=== PATIENT | female | born 1995 | race Caucasian/White ===

== ENCOUNTER 2021-12-04 17:07 | Outpatient (RCR) | payer BC, SELFPAY ==
[2021-12-04 17:36] LABS: Basophils Percent Auto 0.1 % (0.2-1.2); Eosinophils Absolute Auto 0.1 K/mm3 (0-0.3); Eosinophils Percent Auto 0.9 % (0-4.4); Hematocrit 33.5 % (37.0-47.0); Hemoglobin 11.1 g/dL (12.0-15.0); Immature Granulocyte Absolute 0.07 K/mm3 (0.00-0.031); Immature Granulocyte Percent A 0.9 % (0-0.5); Lymphocytes Absolute Auto 1.62 K/mm3 (0.9-3.2); Mean Corpuscular HGB Conc 33.1 g/dl (32-36); Mean Corpuscular Volume 99.7 fl (80-100); Mean Platelet Volume 10.2 fl (7.4-10.4); Monocytes Absolute Auto 0.7 K/mm3 (0.1-0.6); Monocytes Percent Auto 8.7 % (2.6-8.5); Neutrophils Absolute Auto 5.3 K/mm3 (1.3-6.7); Neutrophils Percent Auto 68.4 % (45.5-73.1); Platelet Count Result 193 k/mm3 (150-375); Red Blood Count 3.36 M/mm3 (4.2-5.4); Red Cell Distribution Width 11.9 % (11.5-14.5); White Blood Count 7.7 K/mm3 (4.5-10.0)
[2021-12-07] MEDS: RHO(D) IMMUNE GLOBULIN 300 MCG/2 ML SYRINGE IM (08:27)
== END 2022-03-04 23:59 | disposition home or self-care (01) ==
LOC: ANHLAB 17:07
PROVIDERS: PCP Student in an Organized Health Care Education/Training Program; Visit Provider Student in an Organized Health Care Education/Training Program
DX: Z29.13 Encounter for prophylactic Rho(D) immune globulin (principal); O36.0120 Maternal care for anti-D [Rh] antibodies, second trimester, not applicable or unspecified; Z3A.00 Weeks of gestation of pregnancy not specified
CPT/HCPCS: 36415; 85025; 85461; 90384; 96372; J2790

== ENCOUNTER 2021-12-07 07:41 | Outpatient (CLI) | payer BC, SELFPAY ==
[2021-12-07 09:28] LABS: Glucose 1 Hour PP 50gm Dose 107 mg/dL
== END 2021-12-07 07:42 | disposition home or self-care (01) ==
LOC: ANHLAB 07:42
PROVIDERS: PCP Student in an Organized Health Care Education/Training Program; Visit Provider Student in an Organized Health Care Education/Training Program
DX: Z34.02 Encounter for supervision of normal first pregnancy, second trimester (principal); Z3A.00 Weeks of gestation of pregnancy not specified
CPT/HCPCS: 36415; 82947

== ENCOUNTER 2022-01-18 17:36 | Outpatient (CLI) | payer BC, SELFPAY ==
[2022-01-18 17:49] LABS: Basophils Percent Auto 0.2 % (0.2-1.2); Eosinophils Absolute Auto 0.1 K/mm3 (0-0.3); Hematocrit 33.8 % (37.0-47.0); Hemoglobin 11.5 g/dL (12.0-15.0); Immature Granulocyte Absolute 0.09 K/mm3 (0.00-0.031); Immature Granulocyte Percent A 0.8 % (0-0.5); Lymphocytes Absolute Auto 1.98 K/mm3 (0.9-3.2); Lymphocytes Percent Auto 18.4 % (18.3-44.2); Mean Corpuscular Hemoglobin 32.2 pg (26-34); Mean Corpuscular Volume 94.7 fl (80-100); Mean Platelet Volume 10.8 fl (7.4-10.4); Monocytes Absolute Auto 0.8 K/mm3 (0.1-0.6); Monocytes Percent Auto 7.2 % (2.6-8.5); Neutrophils Absolute Auto 7.8 K/mm3 (1.3-6.7); Neutrophils Percent Auto 72.4 % (45.5-73.1); Platelet Count Result 190 k/mm3 (150-375); Red Blood Count 3.57 M/mm3 (4.2-5.4); Red Cell Distribution Width 11.9 % (11.5-14.5); White Blood Count 10.8 K/mm3 (4.5-10.0)
[2022-01-18 18:46] LABS: HIV 1/2 Ab P24 Ag Result Negative (Negative)
[2022-01-19 17:16] LABS: Rapid Plasma Reagin Non-Reactive (NonReactive)
== END 2022-01-18 17:37 | disposition home or self-care (01) ==
LOC: ANHLAB 17:38
PROVIDERS: PCP Student in an Organized Health Care Education/Training Program; Visit Provider Student in an Organized Health Care Education/Training Program
DX: Z34.03 Encounter for supervision of normal first pregnancy, third trimester (principal); Z3A.00 Weeks of gestation of pregnancy not specified
CPT/HCPCS: 36415; 85025; 86592; 86703; G0432

== ENCOUNTER 2022-02-19 16:21 | Outpatient (CLI) | payer BC, SELFPAY ==
[2022-02-19] VITALS (10 sets, daily range): BP systolic 119–137; BP diastolic 75–89; PULSE 64–82
[2022-02-19 17:12] LABS: Basophils Percent Auto 0.2 % (0.2-1.2); Eosinophils Absolute Auto 0.1 K/mm3 (0-0.3); Eosinophils Percent Auto 0.7 % (0-4.4); Hematocrit 33.9 % (37.0-47.0); Hemoglobin 11.3 g/dL (12.0-15.0); Immature Granulocyte Absolute 0.03 K/mm3 (0.00-0.031); Immature Granulocyte Percent A 0.4 % (0-0.5); Lymphocytes Absolute Auto 1.96 K/mm3 (0.9-3.2); Lymphocytes Percent Auto 23.8 % (18.3-44.2); Mean Corpuscular HGB Conc 33.3 g/dl (32-36); Mean Corpuscular Hemoglobin 30.8 pg (26-34); Mean Corpuscular Volume 92.4 fl (80-100); Mean Platelet Volume 12.2 fl (7.4-10.4); Monocytes Absolute Auto 0.6 K/mm3 (0.1-0.6); Monocytes Percent Auto 7.5 % (2.6-8.5); Neutrophils Absolute Auto 5.6 K/mm3 (1.3-6.7); Neutrophils Percent Auto 67.4 % (45.5-73.1); Platelet Count Result 175 k/mm3 (150-375); Red Blood Count 3.67 M/mm3 (4.2-5.4); Red Cell Distribution Width 12.5 % (11.5-14.5); White Blood Count 8.3 K/mm3 (4.5-10.0)
[2022-02-19 17:19] LABS: Appearance Urine Slightly Cloudy (Clear); Bilirubin Urine Negative (Negative); Color Urine Yellow (Yellow); Glucose Urine UA Negative (Negative); Ketones Urine Negative (Negative); Leukocyte Esterase Ur Negative LEU/UL (NEGATIVE); Nitrate Urine Negative (Negative); Protein Urine Negative (Negative); Urobilinogen Urine 0.2 mg/dL (<2.0); pH Urine 6.5 (5.0-9.0)
[2022-02-19 17:21] LABS: Add Urine Microscopic? YES; Bacteria Urine 1+ /hpf; Blood Urine Trace-Intact (Negative); Mucus Urine Rare /lpf; RBC Urine 0-2 /hpf (0-2); Squamous Epithelial Cell Urine Occasional /hpf (Few); WBC Urine 0-3 /hpf (0-3)
[2022-02-19 17:28] LABS: Alanine Aminotransferase 15 U/L (6-35); Albumin Level 3.5 g/dL (3.5-5.1); Alkaline Phosphatase 156 U/L (38-126); Anion Gap 6 mmol/L (8-16); Aspartate Amino Transferase 23 U/L (14-36); Bilirubin,Total 0.2 mg/dL (0.2-1.3); Blood Urea Nitrogen 8 mg/dL (7-17); Calcium 8.7 mg/dL (8.4-10.2); Carbon Dioxide 19 mmol/L (22-30); Chloride 108 mmol/L (98-107); Estimated Glomerular Filt Rate > 60; Glucose 84 mg/dL (65-110); Potassium 3.9 mmol/L (3.4-5.0); Sodium 133 mmol/L (137-145)
[2022-02-19 20:06] LABS: Creatinine Urine 29.5 mg/dL; Total Protein Urine Random 12 mg/dL; Ur Ttl Prot Creatinine Ratio 0.41 mg/mg (0-0.20)
== END 2022-02-19 20:30 | disposition home or self-care (01) ==
LOC: ANHOBOP 16:26 → ANHOBPP 16:29
PROVIDERS: Visit Provider Student in an Organized Health Care Education/Training Program
DX: O13.9 Gestational [pregnancy-induced] hypertension without significant proteinuria, unspecified trimester (principal); Z3A.00 Weeks of gestation of pregnancy not specified
CPT/HCPCS: 36415; 59025; 80053; 81001; 82570; 84156; 84550; 85025; 87086; 99199

== ENCOUNTER 2022-02-25 16:56 | Inpatient (IN) | payer BC, SELFPAY ==
--- NOTE | 2022-02-25 17:33 | P.PNAN_ITS ---
Anes - Eval Pre Procedure Procedure: labor epidural Date/Time: 02/25/22 17:33 Surgeon: rell Preop Diagnosis: pain during labor Pre Op Diagnosis: IOL Patient Data Age: 26 Gender: F Height: Weight: Allergies Allergy/AdvReac Type Severity Reaction Status Date / Time Penicillins Allergy Intermediate Hives Verified 02/25/22 10:36 Home Medications Medication Instructions Recorded Confirmed Type prenat.vits,danay,umb-ovnj-miior 1 tablet PO DAILY 07/29/21 History Patient hx anesthesia problems: none Family hx anesthesia problems: none Results Review: All pre-operative results and documents have been reviewed as part of the pre- operative evaluation. [facility] Past Medical History Medical History (Updated 02/25/22 @ 17:34 by Adry Zambrano CRNA) Migraines, neuralgic Seasonal allergies Surgical History Surgical History [place] teeth removed Family History Family History Grandparent Heart disease Uterine cancer Mother Endometriosis Grandparent Endometriosis Social History Social History Smoking status: Never smoker Alcohol intake: former Alcohol use details: Not since Substance use: never Spiritual care concerns: No Exam Day of Procedure 02/25/22 17:33
[2022-02-25] MEDS: DINOPROSTONE 10 MG VAG INSERT VAGINAL (17:40)
[2022-02-25 17:42] VITALS: BP 129/88; PULSE 74
[2022-02-25 17:47] LABS: Basophils Percent Auto 0.2 % (0.2-1.2); Eosinophils Percent Auto 0.3 % (0-4.4); Hemoglobin 11.8 g/dL (12.0-15.0); Immature Granulocyte Absolute 0.03 K/mm3 (0.00-0.031); Immature Granulocyte Percent A 0.3 % (0-0.5); Lymphocytes Absolute Auto 2.27 K/mm3 (0.9-3.2); Lymphocytes Percent Auto 25.1 % (18.3-44.2); Mean Corpuscular HGB Conc 33.7 g/dl (32-36); Mean Corpuscular Volume 91.9 fl (80-100); Mean Platelet Volume 12.9 fl (7.4-10.4); Monocytes Absolute Auto 0.6 K/mm3 (0.1-0.6); Monocytes Percent Auto 6.3 % (2.6-8.5); Neutrophils Absolute Auto 6.1 K/mm3 (1.3-6.7); Neutrophils Percent Auto 67.8 % (45.5-73.1); Platelet Count Result 182 k/mm3 (150-375); Red Blood Count 3.81 M/mm3 (4.2-5.4); Red Cell Distribution Width 12.9 % (11.5-14.5)
[2022-02-25 17:56] VITALS: BMI 25.9
[2022-02-25 18:00] VITALS: BP 128/85; PULSE 73; TEMP 37.1
[2022-02-25 18:31] VITALS: BP 119/72; PULSE 78
[2022-02-25 19:01] VITALS: BP 116/80; PULSE 75
[2022-02-25 19:30] VITALS: BP 126/87; PULSE 70
[2022-02-25 20:01] VITALS: BP 127/84; PULSE 75
[2022-02-25] MEDS: LACTATED RINGERS 1,000 ML 125 ML IV CONT (22:50)
[2022-02-25] MEDS: fentaNYL CITRATE INJ (*CRX) 100 MCG/2 ML VIAL 50 MCG IV PUSH (23:15)
[2022-02-26] VITALS (188 sets, daily range): BP systolic 112–157; BP diastolic 58–99; PULSE 63–146; RESP 14–20; TEMP 36.4–38.4; O2SAT 93–100
[2022-02-26] MEDS: fentaNYL CITRATE INJ (*CRX) 100 MCG/2 ML VIAL 50 MCG IV PUSH (01:08)
[2022-02-26] MEDS: LACTATED RINGERS 1,000 ML 125 ML IV CONT ×4 (01:09→11:59)
--- NOTE | 2022-02-26 10:11 | PM.IMHP ---
H&P: HPI History of Present Illness Date/Time: 02/26/22 10:11 Chief Complaint: Elective induction of labor Narrative: Patient presents for elective medical induction of labor at 39 weeks. LMP 05/28/2021 EDC 03/04/2022 consistant with week ultrasound. Uncomplicated course. Labs reviewed. GBS neg. Review of Systems Review of Systems: All systems reviewed & are unremarkable except as noted in HPI and below Constitutional: Constitutional: Reports no additional constitutional complaints and Denies headache(s) Eyes: Eyes: Denies spots in vision ENT: Reports system reviewed and no additional complaints, except as documented and Denies headache(s) Cardiovascular: Cardiovascular: Denies chest pain and Denies dyspnea Respiratory: Respiratory: Denies dyspnea Gastrointestinal: Gastrointestinal: Reports no additional gastrointestinal complaints Genitourinary: Genitourinary: Reports amenorrhea Musculoskeletal: Musculoskeletal: Reports no additional musculoskeletal complaints Integumentary/Breasts: Skin/Breast: Denies breast mass and Denies rash Neurologic: Denies headache(s) Psychiatric: Psychiatric: Reports no additional psychiatric complaints [facility] Past Medical History Medical History (Updated 02/27/22 @ 11:24 by Giacomo Rogers MD) Migraines, neuralgic Seasonal allergies Surgical History Surgical History [place] teeth removed Family History Family History Grandparent Heart disease Uterine cancer Mother Endometriosis Grandparent Endometriosis Social History Social History Smoking status: Never smoker Alcohol intake: former Alcohol use details: Not since Substance use: never Spiritual care concerns: No Meds Home Medications and Allergies Home Medications Medication Instructions Recorded Confirmed Type prenat.vits,danay,pfv-iigy-blqsi 1 tablet PO DAILY 07/29/21 02/25/22 History Allergies Allergy/AdvReac Type Severity Reaction Status Date / Time Penicillins Allergy Intermediate Hives Verified 02/25/22 10:36 Vital Signs Vital Signs - 24 hr 02/25/22 17:42 02/25/22 18:00 02/25/22 18:31 Temperature 98.8 F Pulse Rate 74 73 78 Respiratory Rate Blood Pressure 129/88 128/85 119/72 Pulse Oximetry Oxygen Delivery 02/25/22 19:01 02/25/22 19:30 02/25/22 20:01 Temperature Pulse Rate 75 70 75 Respiratory Rate Blood Pressure 116/80 126/87 127/84 Pulse Oximetry Oxygen Delivery 02/26/22 00:08 02/26/22 03:57 02/26/22 03:58 Temperature 98.9 F Pulse Rate 74 97 Respiratory Rate Blood Pressure 127/77 139/96 H Pulse Oximetry 100 Oxygen Delivery 02/26/22 03:59 02/26/22 04:01 02/26/22 04:02 Temperature Pulse Rate 88 97 Respiratory Rate Blood Pressure 150/89 H 130/97 H Pulse Oximetry 100 Oxygen Delivery 02/26/22 04:03 02/26/22 04:05 02/26/22 04:07 Temperature Pulse Rate 96 84 84 Respiratory Rate Blood Pressure 129/76 135/80 136/69 Pulse Oximetry 100 Oxygen Delivery 02/26/22 04:09 02/26/22 04:11 02/26/22 04:12 Temperature Pulse Rate 93 88 Respiratory Rate Blood Pressure 137/90 125/62 Pulse Oximetry 100 Oxygen Delivery 02/26/22 04:14 02/26/22 04:15 02/26/22 04:17 Temperature Pulse Rate 94 90 90 Respiratory Rate Blood Pressure 147/94 H 140/70 137/67 Pulse Oximetry 100 Oxygen Delivery 02/26/22 04:19 02/26/22 04:21 02/26/22 04:22 Temperature Pulse Rate 85 83 Respiratory Rate Blood Pressure 137/61 143/67 H Pulse Oximetry 100 Oxygen Delivery 02/26/22 04:24 02/26/22 04:26 02/26/22 04:27 Temperature Pulse Rate 84 81 Respiratory Rate Blood Pressure 140/72 137/58 L Pulse Oximetry 100 Oxygen Delivery 02/26/22 04:31
[2022-02-26] MEDS: OXYTOCIN 30 UNITS/NS 500 ML 30 UNITS/500 ML BAG IV CONT (10:15)
--- NOTE | 2022-02-26 13:30 | PM.OBPRVD ---
OB - Delivery Note Procedure Delivery date: 02/26/22 Procedure: spontaneous vaginal delivery Delivery augmentation: Rupture of Membranes and Pitocin Delivery monitor: External FHT Route of delivery: Laceration Description: Vaginal Delivery repair: vicryl (3.0 vicryl) Specimen: No Quantitative Blood Loss (ml): 200 Anesthesia type: Epidural Disposition: Floor Complications: None Narrative: Patient admitted the evening of 02/25 for MIL with cervidil. Cervidil was initiated. She started having tachysystole. Reassuring tracing. Cervidil was removed due to tachysystole. She continued to progress into labor spontaneously. Epidural was placed on request. She was 8 cm for 4 hours and pitocin augmentation was initiated. She progressed to complete. She had a spontaneous vaginal delivery. [place] Baby Date of : 02/26/22 Time of : 13:11 Weeks of gestation at delivery: 39 gender: Male Weight (pounds): 7 Weight (ounces): 0 presentation: vertex position: Left Occiput Anterior Placenta delivery description: Spontaneous Cord Vessel Description: Nuchal Cord, Tight and Reduced (surgically) score one minute: 7 score five minutes: 8 AMG Delivery Billing Delivery Delivery: Delivery Charge
[2022-02-26] MEDS: OXYTOCIN 30 UNITS/NS 500 ML 30 UNITS/500 ML BAG 125 UNITS IV CONT (13:45)
[2022-02-26] MEDS: IBUPROFEN 600 MG TABLET PO (15:23)
--- NOTE | 2022-02-26 16:00 | PC.NURSE ---
Patient transferred to post room #280 via wheelchair. Support person present. Oriented to unit, room, information board, rooming in, admission packet and security measures. Patient verbalizes understanding.
[2022-02-26 16:31] LABS: Rapid Plasma Reagin Non-Reactive (NonReactive)
[2022-02-27 01:45] VITALS: BP 129/77; PULSE 69; RESP 14; TEMP 36.6; O2SAT 98
[2022-02-27 05:20] VITALS: BP 118/73; PULSE 75; RESP 16; TEMP 36.4; O2SAT 96
[2022-02-27 06:01] LABS: Hematocrit 28.5 % (37.0-47.0); Hemoglobin 9.3 g/dL (12.0-15.0)
[2022-02-27 08:00] VITALS: BP 139/83; PULSE 88; RESP 16; TEMP 37; O2SAT 96
[2022-02-27] MEDS: DOCUSATE SODIUM 100 MG CAPSULE PO ×2 (09:40→17:27)
[2022-02-27] MEDS: IBUPROFEN 600 MG TABLET PO (09:40)
[2022-02-27] MEDS: POLYSACCHARIDE IRON COMPLEX 150 MG CAPSULE PO ×2 (09:40→17:27)
--- NOTE | 2022-02-27 11:28 | PM.OBPNVD ---
OB - PN: Subj Subjective Date/time seen: 02/27/22 11:28 Patient comments: pain well controlled, tolerating diet and other (Decreasing lochia.) baby status: doing well and nursing well OB - PN: Obj Data Labs CBC & Chem 7: 02/27/22 05:32 Labs: Laboratory Results - last 24 hr 02/25/22 02/27/22 17:35 05:32 Hgb 9.3 L Hct 28.5 L RPR Non-reactive OB - PN A/P Plan day: 1 Plan: routine care Comments: Patient doing well. Baby doing well. Labial swelling today that was not present yesterday. She requested discharge today. I recommended she stay so that we can observe if the labial swelling is stable. Continuous ice pack to area. Time Spent With Patient Time: Total time spent is greater than 50% in coordination of care (as documented) at patient's floor/unit and/or counseling patient: Exam Const: General: comfortable and no acute distress Eyes: General: appearance normal, both eyes and all related structures Neck: Neck: normal visual inspection Resp: Effort & Inspection: normal respiratory effort Psych: Affect: normal affect Other: Abd: fundus firm below umbilicus, nontender Perineum: mild swelling diffusely in labia, mild bruising at labia, Ext: nontender
[2022-02-27 12:00] VITALS: BP 130/86; PULSE 72; RESP 16; TEMP 36.7; O2SAT 98
[2022-02-27 19:35] VITALS: BP 118/78; PULSE 76; RESP 16; TEMP 36.6; O2SAT 100
[2022-02-28] MEDS: DOCUSATE SODIUM 100 MG CAPSULE PO (07:31)
[2022-02-28] MEDS: POLYSACCHARIDE IRON COMPLEX 150 MG CAPSULE PO (07:31)
[2022-02-28 07:45] VITALS: BP 115/81; PULSE 82; RESP 16; TEMP 36.8; O2SAT 100
--- NOTE | 2022-02-28 09:55 | P.PNOB_ITS ---
OB - PN: Subj Subjective Date/time seen: 02/28/22 09:55 Interval history: no pain has not taken Ibuprofen since yesterday Patient comments: pain well controlled, tolerating diet and other (Decreasing lochia.) [place] baby status: doing well and nursing well OB - PN: Obj Data Labs CBC & Chem 7: 02/27/22 05:32 OB - PN A/P Plan day: 1 Plan: routine care Comments: Patient doing well. Discharge home. Discharge precautions discussed. Time Spent With Patient Time: Total time spent is greater than 50% in coordination of care (as documented) at patient's floor/unit and/or counseling patient: Exam Psych: Affect: normal affect Other: Abd: fundus firm below umbilicus, nontender Perineum: healing, perineum less swelling Ext: nontender
--- NOTE | 2022-02-28 10:35 | PC.NURSE ---
Patient viewed the discharge video Mother & Baby Care, The First Two Weeks . Patient was given the opportunity and encouraged to ask questions. Patient verbalized understanding of information shared and has been given the mother/baby guide for home reference.
[2022-03-02 08:25] VITALS: BP 133/89; PULSE 78; RESP 18; TEMP 36.6
--- NOTE | 2022-03-30 08:59 | PM.OBDSVD ---
DS: Admitting Diagnosis Discharge Date 02/28/22 Admitting Diagnosis Medical induction of labor DS: Discharge Diagnosis Discharge Diagnosis (1) Delivery normal: Code(s): O80 - Encounter for full-term uncomplicated delivery Status: Acute OB - DS: Summary Hospital Course Hospital Course: Patient admitted for medical induction of labor. She progressed into labor rapidly with cervidil which was removed early due to onset of labor. She did receive pitocin augmentation. She had a vaginal delivery uncomplicated. she did well. On day one she did have overall labial swelling that was not present initially after labor. She had ice applied to area. On day two, the swelling was less, her pain was adequately controlled. She was ambulating without problems. Baby was doing well. She was discharged to home on day 2. Discharge precautions discussed. OB Procedures : Ultrasound OB Procedures Intrapartum: Spontaneous Vag Delivery OB Procedures: : None Peripartum Data Infant Delivery Method: Natural Vaginal Laceration Description: Vaginal - 1st Degree complications: none Status at Discharge Functional status at discharge: independent ambulation Time Spent with Patient Time attestation: Total time spent providing and/or coordinating discharge services: Exam Const: General: cooperative Orientation/consciousness: oriented to person, oriented to place and oriented to time HENMT: General nose exam: Normal external nose present Eyes: General: appearance normal, both eyes and all related structures Resp: Effort & Inspection: normal respiratory effort GI: Inspection: normal to inspection Skin: General skin exam: normal color Neuro: General: oriented to person, oriented to place and oriented to time Extrem: General: normal to inspection and no calf tenderness Psych: Appearance: grossly normal Mental Status: mental status grossly normal Discharge Plan Discharge Attending physician on discharge: Giacomo Rogers Consulting providers: Adry Zambrano Discharging Clinician: Giacomo Rogers Anticipated Discharge Date/Time: 02/28/22 09:53 Patient Disposition: Home, Self-Care Activity: may shower and pelvic rest Diet: regular Discharge Instructions: Pelvic rest for 4-6 weeks. May take over the counter Ibuprofen or Tylenol for pain. Call if saturating more than a pad an hour, leg redness, pain and swelling, temperature>100.4. No strenuous activity. Education: Mom and Baby Guide Given to: Mother Follow-Up: Call your delivering provider's office for an appointment to be seen in: Call for appointment Mom and baby should come to the [facility] for the follow-up appointment. Appointment Date/Time: March 02, 2022 at 8:00 am What to expect at your follow-up visit: Physical Assessment Call [phone] if you are unable to keep your appointment time. BREAST CARE: * Wear a snug supportive bra. * For engorgement discomfort: Breast Feeding: * Apply warm moist washcloths * Express milk as needed to relieve engorgement * Wear loose clothing * For sore nipples: * Identify correct latch-on * Apply warm moist washcloths before and after nursing * Air dry nipples after nursing * May apply Lansinoh cream to nipples ABDOMINAL INCISION: (if applicable) * Allow incision to air dry * Do NOT use lotions for powders on your incision * When showering, allow soap and water to run over the incision, but do not wash incision EPISIOTOMY/PERINEAL CARE: * Until bleeding stops, use your jessa bottle after urinating * Change your pad frequently throughout the day * You may take sitz baths several times a day (fill your bathtub with warm water and soak for 20 minutes.) Do NOT bathe in the water * No tub baths until seen by your physician - You may s
== END 2022-02-28 11:30 | disposition home or self-care (01) | DRG 807 ==
LOC: ANHLDR 17:13 → ANHOB2 02-28 09:55 → ANHLDR 03-03 07:50
PROVIDERS: Admitting Provider Student in an Organized Health Care Education/Training Program; Visit Provider Obstetrics & Gynecology
DX: O69.1XX0 Labor and delivery complicated by cord around neck, with compression, not applicable or unspecified (principal); Z37.0 Single live birth; O70.0 First degree perineal laceration during delivery; Z3A.39 39 weeks gestation of pregnancy; Z88.0 Allergy status to penicillin
CPT/HCPCS: 36415; 85014; 85018; 85025; 86592; 86850; 86900; 86901; A9270; J2590; J2795; J3010; J7120

== ENCOUNTER 2024-03-20 09:58 | Emergency (ER) | payer BC, SELFPAY ==
--- NOTE | 2024-03-20 10:00 | ED.NAVMDI ---
HPI - Nausea/Vomiting/Diarrhea General Chief complaint: Nausea/Vomiting/Diarrhea Stated complaint: ABD PAIN/DIARRHEA Source: patient and RN notes reviewed Mode of arrival: ambulatory Limitations: no limitations History of Present Illness HPI Narrative: Patient is a 29-year-old female who presents with epigastric abdominal pain and diarrhea. Patient states that she has been experiencing generalized abdominal pain since Tuesday. She has had diarrhea since Tuesday. She denies blood in the stool. At this time, she is experiencing epigastric abdominal pain that radiates into her back. She states that the pain is constant moderately severe. She denies known fevers. Denies associated nausea or vomiting. Unsure of any known sick contacts. Denies any past medical history. Related Data Allergies Allergy/AdvReac Type Severity Reaction Status Date / Time Penicillins Allergy Intermediate Hives Verified 03/20/24 10:04 Review of Systems Review of Systems: CONSTITUTIONAL: Denies fever, chills, or sweats. EYES: Denies visual changes, redness, or discharge. ENT: Denies otalgia and sore throat CARDIOVASCULAR: Denies chest pain, palpitations, or edema. RESPIRATORY: Denies cough or dyspnea. GASTROINTESTINAL: Denies nausea and vomiting but reports abdominal pain and diarrhea. GENITOURINARY: Denies dysuria or hematuria. SKIN: Denies rash or itching. MUSCULOSKELETAL: Denies back pain, joint pain, or myalgia. NEUROLOGIC: Denies headache, numbness, or weakness. Pertinent positives per HPI. Endocrine: Endocrine: Reports no additional endocrine complaints PMFSH Past Medical History Medical History Migraines, neuralgic Seasonal allergies Vaginal delivery Surgical History Surgical History [place] teeth removed Family History Family History Grandparent Heart disease Uterine cancer Mother Endometriosis Grandparent Endometriosis Social History Social History Smoking status: Never smoker Alcohol intake: former Alcohol use details: Not since Substance use: never Spiritual care concerns: No Comments At the time of my signature, I reviewed and agree with the nursing past medical, surgical, social, and family history. There is no relevant family history pertinent to the patient complaint. Exam Narrative: GENERAL: This is a well-nourished, well-developed patient, in no apparent distress. HEAD: normocephalic, atraumatic. EYES: Sclera clear/white. Vision is grossly intact. EARS: External ears normal. Hearing grossly intact. NOSE: External nose normal with no obvious nasal discharge, nares without redness, no rhinorrhea. THROAT: Mucous membranes moist, posterior pharynx clear. NECK: Neck supple, non-tender without lymphadenopathy, masses or thyromegaly. CARDIOVASCULAR: Regular rate and rhythm without murmurs, gallops, or rubs. RESPIRATORY: Clear to auscultation. Breath sounds equal bilaterally. No wheezes, rales, or rhonchi. GASTROINTESTINAL: Epigastric tenderness upon palpation. Bowel sounds are active. No hepato-splenomegaly, or palpable masses. SKIN: warm, intact with no suspicious lesions or rash, good texture and turgor. NEURO: awake, alert, and oriented to person, place and time. There were no obvious focal neurologic abnormalities. EXTREMITIES: No clubbing, cyanosis, or edema. No joint tenderness, effusion, or edema noted. BACK: Nontender without deformity or crepitance. No flank tenderness. Course Course Level of Care: Express Care Visit Vital Signs Vital signs: Vital Signs Temperature 98.1 F 03/20/24 10:06 Pulse Rate 98 03/20/24 10:06 Respiratory Rate 16 03/20/24 10:06 Blood Pressure 121/81 03/20/24 10:06 Pulse Oximetry 100 03/20/24 10:06 Temp
[2024-03-20 10:06] VITALS: BP 121/81; PULSE 98; RESP 16; TEMP 36.7; O2SAT 100
== END 2024-03-20 10:10 | disposition short-term general hospital (02) ==
PROVIDERS: Emergency Provider Nurse Practitioner
DX: R10.13 Epigastric pain (principal)
CPT/HCPCS: 99212; G0463

== ENCOUNTER 2024-03-20 10:32 | Emergency (ER) | payer BC, SELFPAY ==
--- NOTE | ~2024-03-20 | CT_ITS ---
EXAMINATION: CT abdomen pelvis w con DATE: 03/20/2024 12:38 INDICATION: Abdominal pain. TECHNIQUE: Computed tomography (CT) of the abdomen and pelvis was performed with 100 mL Omnipaque 350 intravenous contrast. Automated exposure control and iterative reconstruction technique were employe d. The dose-length product was 181.33 mGy-cm. COMPARISON: None. FINDINGS: The visualized portions of the lung bases demonstrate minimal atelectasis. No pleural effus ion. The heart size is normal. No pericardial effusion. The liver demonstrates steatosis in the gallb ladder fossa. The gallbladder, spleen, pancreas, adrenal glands, and kidneys are normal. There is wal l thickening throughout the colon, consistent with colitis. The appendix is normal. There are no path ologically enlarged lymph nodes. There is physiologic fluid in the pelvis. The bones are unremarkable . IMPRESSION: 1. Pancolitis. Reviewed, dictated and finalized at location A. IMPRESSION: 1. Pancolitis.
[2024-03-20 10:33] VITALS: BP 119/84; PULSE 94; RESP 16; TEMP 36.4; O2SAT 99
[2024-03-20 10:59] LABS: Basophils Percent Auto 0.2 % (0.2-1.2); Eosinophils Absolute Auto 0.2 K/mm3 (0-0.3); Hematocrit 43.6 % (37.0-47.0); Hemoglobin 15.3 g/dL (12.0-15.0); Immature Granulocyte Absolute 0.01 K/mm3 (0.00-0.031); Immature Granulocyte Percent A 0.2 % (0-0.5); Immature Platelet Fraction Pct 2.8 % (0.9-11.2); Lymphocytes Absolute Auto 0.92 K/mm3 (0.9-3.2); Lymphocytes Percent Auto 19.2 % (18.3-44.2); Mean Corpuscular HGB Conc 35.1 g/dl (32-36); Mean Corpuscular Hemoglobin 31.7 pg (26-34); Mean Corpuscular Volume 90.3 fl (80-100); Mean Platelet Volume 9.9 fl (7.4-10.4); Monocytes Absolute Auto 0.5 K/mm3 (0.1-0.6); Neutrophils Absolute Auto 3.2 K/mm3 (1.3-6.7); Neutrophils Percent Auto 66.4 % (45.5-73.1); Platelet Count Result 140 k/mm3 (150-375); Red Blood Count 4.83 M/mm3 (4.2-5.4); Red Cell Distribution Width 11.6 % (11.5-14.5); White Blood Count 4.8 K/mm3 (4.5-10.0)
[2024-03-20 11:08] LABS: Alanine Aminotransferase 17 U/L (6-35); Albumin Level 4.4 g/dL (3.5-5.1); Alkaline Phosphatase 47 U/L (38-126); Anion Gap 11 mmol/L (4-12); Aspartate Amino Transferase 29 U/L (14-36); Bilirubin,Total 0.9 mg/dL (0.2-1.3); Blood Urea Nitrogen 9 mg/dL (7-17); Calcium 8.7 mg/dL (8.4-10.2); Carbon Dioxide 25 mmol/L (22-30); Chloride 97 mmol/L (98-107); Estimated CRCL calculation 73 ml/min; Estimated Glomerular Filt Rate > 60; Glucose 99 mg/dL (65-110); Lipase 40 U/L (23-300); Potassium 4.4 mmol/L (3.4-5.0); Sodium 133 mmol/L (137-145)
[2024-03-20 11:36] LABS: BEDSIDEPREGUCG Negative
[2024-03-20] MEDS: BELLADONNA ALK/PHENOB ELIX 10 ML, MAG HYDROX/ALUMINUM HYD/SIMETH 30 ML, LIDOCAINE HCL 2... PO (11:39)
[2024-03-20 11:47] LABS: Add Urine Microscopic? YES; Appearance Urine Cloudy (Clear); Bacteria Urine 1+ /hpf; Bilirubin Urine Negative (Negative); Blood Urine 2+ (Negative); Color Urine Yellow (Yellow); Glucose Urine UA Negative (Negative); Ketones Urine 1+ mg/dL (Negative); Leukocyte Esterase Ur 1+ LEU/UL (Negative); Nitrate Urine Negative (Negative); Protein Urine Trace mg/dL (Negative); Specific Grav Ur 1.013 (1.001-1.035); Squamous Epithelial Cell Urine Many /hpf (Few); Urobilinogen Urine 0.2 mg/dL (<2.0); WBC Urine 21-50 /hpf (0-3)
[2024-03-20] MEDS: SODIUM CHLORIDE 0.9% IV 1,000 ML 999 ML IV CONT (12:19)
--- NOTE | 2024-03-20 12:48 | ED.ABDPAIN ---
HPI - Abdominal Pain General Chief Complaint: Abdominal Pain Stated Complaint: ABD PAIN,DIARRHEA X5D Time Seen by Provider: 03/20/24 11:23 History of Present Illness HPI narrative: 29-year-old female with no significant medical problems presents to the emergency room for evaluation of this epigastric pain that radiates through to her back began this morning. Patient endorses 3 days of non bloody diarrhea. Patient states that she took Imodium x1 in began developing abdominal spasms. Denies nausea or vomiting. Denies fevers. States no abdominal pain relief after bowel movements. Denies dysuria. Related Data Allergies Allergy/AdvReac Type Severity Reaction Status Date / Time Penicillins Allergy Intermediate Hives Verified 03/20/24 10:04 Review of Systems Review of Systems: ROS unremarkable except for noted in HPI PMFSH Past Medical History Medical History Migraines, neuralgic Seasonal allergies Vaginal delivery Surgical History Surgical History [place] teeth removed Family History Family History Grandparent Heart disease Uterine cancer Mother Endometriosis Grandparent Endometriosis Social History Social History Smoking status: Never smoker Alcohol intake: former Alcohol use details: Not since Substance use: never Spiritual care concerns: No Exam Narrative: GENERAL: Well-appearing, well-nourished, no physical limitations, and in no acute distress. HEAD: Normocephalic, atraumatic. EYES: Conjunctivae normal, PERRLA and EOMI. CHEST: Clear to auscultation. No respiratory distress. No wheezes rales or rhonchi. HEART: Regular rate and rhythm. No murmur heard. Normal peripheral pulses. ABDOMEN: Soft, periumbilical tenderness, nondistended, normal active bowel sounds. BACK: No CVA tenderness EXTREMITIES: Normal range of motion. No edema. No clubbing or cyanosis SKIN: Warm, dry, no rash. No noted wounds NEURO: No focal deficits. Alert and oriented x3. MAEW. CN's II-XI intact bilaterally, normal gait PSYCH: Cooperative. Normal mood and affect. Course Vital Signs Vital signs: Vital Signs Temperature 36.4 C 03/20/24 10:33 Pulse Rate 94 03/20/24 10:33 Respiratory Rate 16 03/20/24 10:33 Blood Pressure 119/84 03/20/24 10:33 Pulse Oximetry 99 03/20/24 10:33 Oxygen Delivery Room Air 03/20/24 10:33 Temperature 36.4 C 03/20/24 10:33 Pulse Rate 94 03/20/24 10:33 Respiratory Rate 16 03/20/24 10:33 Blood Pressure 119/84 03/20/24 10:33 Pulse Oximetry 99 03/20/24 10:33 Oxygen Delivery Room Air 03/20/24 10:33 MDM - Abdominal Pain Lab Data 03/20/24 10:52 03/20/24 10:52 Labs: Lab Results 03/20/24 03/20/24 03/20/24 Range/Units 10:52 11:30 11:32 WBC 4.8 (4.5-10.0) K/mm3 RBC 4.83 (4.2-5.4) M/mm3 Hgb 15.3 H D (12.0-15.0) g/dL Hct 43.6 (37.0-47.0) % MCV 90.3 (80-100) fl MCH 31.7 (26-34) pg MCHC 35.1 (32-36) g/dl RDW 11.6 (11.5-14.5) % Plt Count 140 L (150-375) k/mm3 MPV 9.9 (7.4-10.4) fl Immature Gran % (Auto) 0.2 (0-0.5) % Neut % (Auto) 66.4 (45.5-73.1) % Lymph % (Auto) 19.2 (18.3-44.2) % Wilson % (Auto) 10.0 H (2.6-8.5) % Eos % (Auto) 4.0 (0-4.4) % Baso % (Auto) 0.2 (0.2-1.2) % Lymph # (Auto) 0.92 (0.9-3.2) K/mm3 Wilson # (Auto) 0.5 (0.1-0.6) K/mm3 Eos # (Auto) 0.2 (0-0.3) K/mm3 Baso # (Auto) 0.0 (0.0-0.1) K/mm3 Abs Immat Gran (auto) 0.01 (0.00-0.031) K/mm3 Absolute Neuts (auto) 3.2 (1.3-6.7) K/mm3 Absolute Nucleated RBC 0.000 (0.0-0.012) K/mm3 Nucleated RBC % 0.0 (0.0-0.2) % % Immature Plt Fraction 2.8 (0.9-11.2) % Sodium 133 L (137-145) mmol/L Po
[2024-03-20 14:30] VITALS: BP 132/80; PULSE 90; RESP 16; O2SAT 98
== END 2024-03-20 14:30 | disposition home or self-care (01) ==
PROVIDERS: Emergency Provider Nurse Practitioner Family
DX: K52.9 Noninfective gastroenteritis and colitis, unspecified (principal)
CPT/HCPCS: 36415; 74177; 80053; 81001; 81025; 83690; 85025; 85055; 87086; 96360; 99284; A9270; J0500; J7030; Q9967

== ENCOUNTER 2025-05-09 13:14 | Outpatient (CLI) | payer BC, SELFPAY ==
--- NOTE | ~2025-05-09 | US_ITS ---
EXAMINATION: US thyroid DATE: 05/09/2025 13:38 INDICATION: Enlarged thyroid. TECHNIQUE: Multiple ultrasound images of the thyroid were obtained. COMPARISON: None. FINDINGS: The right thyroid lobe measures 4.0 x 1.6 x 1.6 cm. The left thyroid lobe measures 3.8 x 1.4 x 1.6 cm. There is normal echotexture and echogenicity throughout the thyroid gland. No discrete nodules identified. Normal vascular flow is present. IMPRESSION: 1. Normal thyroid. Reviewed, dictated and finalized at location E. IMPRESSION: 1. Normal thyroid.
== END 2025-05-09 13:15 | disposition home or self-care (01) ==
DX: E07.9 Disorder of thyroid, unspecified (principal)
CPT/HCPCS: 76536

== ENCOUNTER 2025-06-13 14:33 | Outpatient (CLI) | payer BC, SELFPAY ==
--- NOTE | ~2025-06-13 | US_ITS ---
EXAM/PROCEDURE: US OB <= 14 weeks fetus HISTORY: HX of SAB COMPARISON: None available. TECHNIQUE: Directed exam for viability and dates FINDINGS: A single viable intrauterine gestation is identified with heart rate of 138 bpm. EGA by dates and ultrasound 6 weeks 6 days and 7 weeks 1 day EDC by dates and ultrasound January 31 and January 29 2026 Right ovary: 3.8 x 2.9 x 4.0 cm with corpus luteal cyst of 2.1 x 2.1 cm. Left ovary: 1.3 x 0.8 x 1.1 cm. No free fluid seen. IMPRESSION: Directed examination demonstrating single viable intrauterine gestation with concordant dates. IMPRESSION: No acute findings. Reviewed, dictated and finalized at location A. [employer] IMPRESSION: Directed examination demonstrating single viable intrauterine gesta tion with concordant dates. IMPRESSION: No acute findings.
== END 2025-06-13 14:34 | disposition home or self-care (01) ==
LOC: MICIMG 14:34
PROVIDERS: Visit Provider Obstetrics & Gynecology Gynecology
DX: O26.851 Spotting complicating pregnancy, first trimester (principal); Z3A.00 Weeks of gestation of pregnancy not specified
CPT/HCPCS: 76801